=== PATIENT | female | born 1965 | race Native Hawaiian/Other Pacific Islander ===

== ENCOUNTER 2016-11-04 07:00 | Inpatient (IN) | payer MEDICAID ==
[2016-10-29 09:45] VITALS: BMI 25.7
[~2016-11-04 07:00] MED LIST: Lactated Ringer's 1,000 ML IV ONE
[2016-11-04] MEDS ORDERED: Propofol 10 mg/ml Inj (20 ML) ONE (07:19)
[2016-11-04] MEDS ORDERED: Midazolam 2 MG/2 ML VIAL ONE (07:20)
[2016-11-04] MEDS ORDERED: ePHEDrine 50 mg/ml Inj ONE (07:20)
[2016-11-04] MEDS ORDERED: Succinylcholine 200 mg/10 ml Inj IV ONE (07:21)
[2016-11-04] MEDS ORDERED: Rocuronium 10 mg/ml (5 ml) ONE (07:21)
[2016-11-04] MEDS ORDERED: Lidocaine 4% (Laryng-O-Jet) Kit MM ONE (07:21)
[2016-11-04] MEDS ORDERED: Sevoflurane - Inhalation Anesthetic Liq (250 ml) ONE (07:25)
[2016-11-04] MEDS ORDERED: Bupivacaine 0.25%-Epinephrine 1:200,000 (30 ml) Inj ONE (07:31)
[2016-11-04] MEDS ORDERED: Lactated Ringer's 1,000 ML IV ONE (09:45)
[2016-11-04] MEDS ORDERED: Dexamethasone 4 mg/1 ml ONE (10:05)
[2016-11-04] MEDS ORDERED: DiphenhydrAMINE 50 mg/ml Inj ONE (10:05)
[2016-11-04] MEDS ORDERED: Desflurane Inhalation Anesthetic Liq (240 ml) ONE (11:00)
[2016-11-04] MEDS ORDERED: HEMOSTATIC MATRIX 10 ML DIS.NEEDLE TOP ONE (11:00)
[2016-11-04] MEDS ORDERED: Neostigmine Methylsulfate 3mg/3ml Syringe IV ONE (11:04)
--- NOTE | 2016-11-04 11:17 | PCM.SURG1 ---
Surgeon's Initial Post Op Note - Surgeon's Notes Surgeon: silva willis md Rose Grower: madhuri CROUCH, Tra CROUCH Type of Anesthesia: General Endo, Local Pre-Operative Diagnosis: Proplapse uterus, chronic pelvic pain, fibroid uterus Operative Findings: bulky prolapsed uterus, extensive intraabdominal adhessions , pyosalpinx on left side, normal bladder anatomy ureters efluxing urine freely Post-Operative Diagnosis: Proplapse uterus, chronic pelvic pain, fibroid uterus , pyosalpinx, pelvic adhesinve disease Operation Performed: Total robotic hysterectomy bilateral salpingectomy. Colpopexy / Uterosacroligament suspenssion. Enterolysis. Cystoscopy Specimen/Specimens Removed: uterus, cervix and tubes bilateraly Estimated Blood Loss: EBL {In ML}: 10 Blood Products Given: N/A Drains Used: No Drains Post-Op Condition: Good Date of Surgery/Procedure: 11/04/16 Time of Surgery/Procedure: 11:19
[2016-11-04] MEDS ORDERED: Oxycodone/Acetaminophen 5/325 mg Tab PO PRN (11:21)
--- NOTE | 2016-11-04 11:27 | PCM.OP ---
Operative Report - Operative Report Date of Surgery/Procedure: 11/04/16 Time of Surgery/Procedure: 11:25 Surgeon: Ramon Wood md [employer]ustainable Development Policy Analyst: Tra CROUCH, Maral CROUCH Anesthesia/Sedation: General with ET tube Pre-Operative Diagnosis: Fibroid ureters. Prolapsed uterus. Chronic pelvic pain. Urinary urgency and frequency Post-Operative Diagnosis: Fibroid ureters. Prolapsed uterus. Chronic pelvic pain. Pelvic adhesive disease. Urinary urgency and frequency. Pyosalpinx Indication for Surgery: 51-year-old female with worsening chronic pelvic pain pprolapsed uterus, fibroid uterus and urinary urgency and frequency. the patient has failed conservative management for many years Operative Findings: prolpase uterus, severe pelvic adhesions likely from pelvic inflammatory disease in the past, uuterine fibroids. pyosalpinx within the left fallopian tube, right fallopian tube severely adherent to omentum and bowel loops. Normal bladder anatomy, ureters efluxing urine freely as per diagnostic cystoscopy at the end of the procedure. Procedure/Operation Description: Operation Performed: 1. Total robotic hysterectomy bilateral salpingectomy. 2. Colpopexy / Uterosacroligament suspenssion. 3. Enterolysis. 4. Cystoscopy. Detailed Operative Report. This is a 51 years old female with symptomatic uterine prolapse, associated fibroid uterus, chronic pelvic pain, and urinary incontinence. The patient completed an extensive preoperative workup, which included an ultrasound , as well as a pap smear and an endometrial biopsy, chemistry and hematology studies. The patient reported these symptoms and problems as debilitating, and adversely affecting her quality of life. Following a period of failed conservative management, and patient decision was made to proceed with a more invasive approach to address the above noted problems. A decision was finally made to proceed with a total robotic assisted hysterectomy, bilateral salpingectomy, and vaginal vault suspension. A detailed description of this robotic procedure was given to the patient, all risks and benefits of the surgical modality was reviewed, printed material was also given to the patient regarding robotic surgery. The patient fully understood all the risks and benefits and elected to proceed with this proposed procedure. Initial recommendations were made to proceed with bilateral salpingo-oophorectomy, however the patient elected to proceed with salpingectomy and maintained her ovaries despite recommendations to remove both ovaries at her age. After proper consent was obtained from the patient was taken to the operating room, proper patient identification was completed. She was placed in dorsal lithotomy position; general anesthesia was induced without difficulty. Her legs were placed in adjustable Dimitry stirrups. Careful attention was placed not to over-flex or over-rotate the lower extremities at the hip or the knee joints. She was prepped and draped appropriately for robotic assisted hysterectomy. De Jesus catheter was inserted under sterile conditions. A weighted speculum was placed in the vagina, anterior lip of cervix was grasped with a tenaculum, and a V-care uterine manipulator was inserted through the cervix and secured. The weighted speculum and tenaculum were removed from the patient's vagina and attention was turned to the patient's abdomen. Local anesthetic solutions of 0.25% Marcaine with epinephrine were utilized to infiltrate the skin prior to all abdominal skin incisions. A total of 15 mL of 0.25% Marcaine was utilized throughout the procedure. While tenting the abdominal wall, a Veres needle was inserted through the umbilicus and a pneumoperitoneum was obtained. Approximately 1 cm above the umbilicus in the midline, a 1 cm incision was made with a scalpel and a trocar and sleeve were introduced. A robotic camera was inserted and an initial survey of the patient' s abdomen revealed an enlarged uterus, boggy in appearance. Both ovaries appeared normal with diseased and distorted appearing fallopian tubes. The left fallopian tube appeared hydrosalpinx and the right tube appeared severely distorted and adherent. The patient was placed in Trendelenburg position ready for a da Jaspal robotic system to be docked. 3 robotic ports were utilized for this procedure. The first robotic port was placed on the patient's right side approximately 8 cm left lateral to the camera port, the second robotic port was placed 8 cm right lateral to the camera port and the third robotic port was placed approx. 8 cm lateral the second port. All ports were approx. aligned along the same horizontal line on the abdomen in an arch like fashion. An operating room assistant port was placed 8 cm left lateral to the first robotic port. For the operating room assistant and camera ports we utilized the Jipio trocar system. All trocars were inserted under direct visualization. The placement of the trocars was all accomplished under careful and meticulous placement under direct visualization. Following the placement of all trocars, the da Jaspal robotic system was docked in a parallel method without difficulty. The following instruments were utilized for this procedure: the bipolar cautery device, a monopolar gina and finally a ProGrasp. Meticulous and careful lysis of adhesions as well as enterolysis was accomplished utilizing the monopolar gina and bipolar device. Prior to the start of the hysterectomy, both ureters and their courses were visualized, peristalsis bilaterally. On the patient's right side, the utero-ovarian and the round ligaments were identified cauterized and transected, the broad ligament was divided all the way down to the utero cervical junction bladder flap was then created by transecting the visceroperitoneum over the bladder reflection. In a similar fashion, the left round ligament, utero-ovarian ligament and broad ligament were cauterized sealed and transected, taken down to the level of the cervical uterine junction. Uterine vessels on both sides were sealed and transected. The Uterosacral ligaments were sealed and transected. The monopolar gina and PK were utilized to complete the colpotomy incision around the care vaginal ring. Excellent hemostasis was noted. The uterus, cervix and fallopian tubes were delivered transvaginal through the colpotomy incision and sent to pathology for permanent analysis. The colpotomy incision was closed with 2-0 v LOC in a continuous fashion with excellent hemostasis. The vaginal vault suspension was achieved by suspending the vaginal cuff to the base of the uterosacral ligaments bilaterally. For uterosacral ligament suspension portion of the procedure, the ureters were once again identified to avoid possible compromise or kinking while suspending the vaginal vault. A 2-0 permanent suture material ( [place]-Vick) was utilized to suspend the uterosacral ligaments from the base to the vaginal vault cuff incision including both anterior and posterior aspect of the colpotomy incision. Utilizing a 3-0 Monocryl suture, the peritoneum over the colpotomy incision and uterosacral ligaments was re-approximated in a continuous fashion. The abdomen was throughout irrigated and cleared of all clots and debris. FloSeal as well as Interceed was applied to the incision sites. Excellent hemostasis was again noted. All robotic and laparoscopic instruments removed under direct visualization. The robotic arms were undocked , and a da Jaspal robotic system was wheeled away from the patient's bedside. Both operating room assistant and camera ports were closed at the fascial layer utilizing a 2- 0 Vicryl suture material in interrupted fashion. Pneumoperitoneum was reduced and all skin incisions were closed utilizing 4-0 Monocryl in a subcutaneous fashion. Dermabond was applied to all incisions. Due to the complexity of this hysterectomy and colpopexy, a diagnostic cystoscopy was completed. The De Jesus catheter was removed; the bladder was distended with approximately 350 cc of normal saline. A 30 cystoscope was introduced and a survey of the bladder anatomy was completed. The base, and the dome of the bladder appeared normal, both ureteral orifices appeared normal and were efluxing urine freely. The urethra appeared normal. A De Jesus catheter was reinserted. Vaginal packing was inserted to be removed the next morning. Patient emerged from general anesthesia without difficulty, and was taken to recovery room in stable condition. Prior to incision the patient received antibiotics, prior to closure sponge lap and needle counts were correct x2. Estimated Blood Loss: 10 Blood Replaced: none Sponge/Instrument Count: sponge lap and needle counts were correct x2 Drains: none Complications: none Specimen: uterus cervix fallopian tubes Discharge & Condition: patient was discharged home in stable condition postoperative #1
[2016-11-04] MEDS ORDERED: HYDROmorphone 0.5 mg/0.5 ml ISec IVP PRN (11:28)
[2016-11-04] MEDS ORDERED: Sodium Chloride 0.9% 1,000 ML IV SCH (11:30)
[2016-11-04] MEDS: ceFAZolin 2 GM in Sodium Chloride 0.9% 100 ML IVPB SCH (16:51)
[2016-11-04] MEDS: Lactated Ringer's 1,000 ML IV SCH (20:42)
[2016-11-05] MEDS: ceFAZolin 2 GM in Sodium Chloride 0.9% 100 ML IVPB SCH ×2 (00:43→09:32)
[2016-11-05 00:56] VITALS: RESP 18
[2016-11-05] MEDS: Lactated Ringer's 1,000 ML IV SCH (05:02)
[2016-11-05 06:52] LABS: BASO % 0.1 % (0.0-2.0); EOS % 0.1 % (0.0-4.0); HEMATOCRIT 31.8 % (34.0-47.0); LYMPH # 1.3 K/uL (1.0-4.3); LYMPH % 18.1 % (20.0-40.0); MEAN CELL VOLUME 83.8 fl (81.0-99.0); MEAN CORPUSCULAR HEMOGLOBIN 26.5 pg (27.0-31.0); MEAN CORPUSCULAR HGB CONC 31.7 g/dL (33.0-37.0); MONO # 0.6 K/uL (0.0-0.8); MONO % 7.7 % (0.0-10.0); NEUT # 5.5 K/uL (1.8-7.0); RED CELL DISTRIBUTION WIDTH 15.6 % (11.5-14.5); WHITE BLOOD COUNT 7.4 K/uL (4.8-10.8)
[2016-11-05 06:56] LABS: BLOOD UREA NITROGEN 12 mg/dl (7-17); CALCIUM 8.5 mg/dL (8.4-10.2); CARBON DIOXIDE 23 mmol/L (22-30); CHLORIDE 108 mmol/L (98-107); GFR AFRICAN-AMERICAN > 60; GLUCOSE,RANDOM 113 mg/dL (65-105); POTASSIUM 3.6 MMOL/L (3.6-5.0); SODIUM 139 mmol/l (132-148)
--- NOTE | 2016-11-05 12:38 | CP.PCM.PN ---
Subjective - Date & Time of Evaluation Date of Evaluation: 11/05/16 Time of Evaluation: 12:00 - Subjective Subjective: pt c/o incisional pain 4/10 alleviated with oral pain meds,noel diet without n/v, OOB/ amb with minimal asst,voiding + flatus,no events noted last pm Objective - Vital Signs/Intake and Output Vital Signs (last 24 hours): Temp Pulse Resp BP Pulse Ox 99.4 F 57 L 18 112/63 98 11/05/16 05:00 11/05/16 05:00 11/05/16 05:00 11/05/16 05:00 11/05/16 05:00 Intake and Output: 11/05/16 11/05/16 06:59 18:59 Intake Total 1900 Output Total 1300 Balance 600 - Medications Medications: Current Medications Hydromorphone HCl (Dilaudid) 2 mg IVP Q3H PRN PRN Reason: Pain, severe (8-10) Cefazolin Sodium 2 gm/ Sodium (Chloride) 100 mls @ 100 mls/hr IVPB Q8 [facility] Last Admin: 11/05/16 09:32 Dose: 100 mls/hr Sodium Chloride (Sodium Chloride 0.9%) 1,000 mls @ 100 mls/hr IV .Q10H [facility] Last Admin: 11/04/16 13:28 Dose: 0 mls Lactated Ringer's (Lactated Ringer's) 1,000 mls @ 125 mls/hr IV .Q8H [facility] Last Admin: 11/05/16 05:02 Dose: 125 mls/hr Ketorolac Tromethamine (Toradol) 30 mg IVP Q6H [facility] Last Admin: 11/05/16 11:06 Dose: 30 mg Ondansetron HCl (Zofran Inj) 4 mg IVP Q6 PRN PRN Reason: Nausea/Vomiting Oxycodone/Acetaminophen (Percocet 5/325 Mg Tab) 2 tab PO Q4H PRN PRN Reason: Pain, moderate (4-7) Stop: 11/07/16 11:22 - Labs Labs: 11/05/16 06:30 11/05/16 06:30 - Constitutional Appears: Well, Non-toxic, No Acute Distress - Head Exam Head Exam: ATRAUMATIC, NORMAL INSPECTION, NORMOCEPHALIC - Eye Exam Eye Exam: EOMI, PERRL - ENT Exam ENT Exam: Mucous Membranes Moist - Neck Exam Neck Exam: Normal Inspection - Respiratory Exam Respiratory Exam: Clear to Ausculation Bilateral - Cardiovascular Exam Cardiovascular Exam: REGULAR RHYTHM - GI/Abdominal Exam GI & Abdominal Exam: Soft, Normal Bowel Sounds Additional comments: incisions C/D/I,tender,no s/o peritonitis - Rectal Exam Rectal Exam: Deferred - Extremities Exam Additional comments: calves soft/NT +2 pulses - Neurological Exam Neurological Exam: Alert, Oriented x3 - Psychiatric Exam Psychiatric exam: Normal Affect, Normal Mood - Skin Skin Exam: Dry, Intact Assessment and Plan - Assessment and Plan (Free Text) Assessment: 51 yo female POD# 1 Robotic Assisted Hysterectomy/LADI/Uterosacral Ligament Suspension/Cystoscopy/Hemodynamically stable Plan: pt seen by ,to be d/c home today with family and f/u in office in 2 weeks,pt given pain med scripts and wound care instructions d/w pt and as well.
--- NOTE | 2016-11-05 12:47 | CP.PCM.DIS ---
Provider - Provider Date of Admission: 11/04/16 11:21 Attending physician: Ramon Wood MD Primary care physician: NO FAMILY PROVIDER Time Spent in preparation of Discharge (in minutes): 30 Diagnosis - Discharge Diagnosis (1) Fibroid uterus Status: Chronic (2) Chronic female pelvic pain Status: Chronic (3) Urinary urgency Status: Chronic Hospital Course - Lab Results Lab Results: Most Recent Lab Values WBC 7.4 K/uL (4.8-10.8) D 11/05/16 06:30 RBC 3.79 Mil/uL (3.80-5.20) L 11/05/16 06:30 Hgb 10.1 g/dL (12.0-16.0) L 11/05/16 06:30 Hct 31.8 % (34.0-47.0) L 11/05/16 06:30 MCV 83.8 fl (81.0-99.0) 11/05/16 06:30 MCH 26.5 pg (27.0-31.0) L 11/05/16 06:30 MCHC 31.7 g/dL (33.0-37.0) L 11/05/16 06:30 RDW 15.6 % (11.5-14.5) H 11/05/16 06:30 Plt Count 171 K/uL (130-400) 11/05/16 06:30 MPV 9.0 fl (7.2-11.7) 11/05/16 06:30 Neut % (Auto) 74.0 % (50.0-75.0) 11/05/16 06:30 Lymph % (Auto) 18.1 % (20.0-40.0) L 11/05/16 06:30 Garvin % (Auto) 7.7 % (0.0-10.0) 11/05/16 06:30 Eos % (Auto) 0.1 % (0.0-4.0) 11/05/16 06:30 Baso % (Auto) 0.1 % (0.0-2.0) 11/05/16 06:30 Neut # 5.5 K/uL (1.8-7.0) 11/05/16 06:30 Lymph # 1.3 K/uL (1.0-4.3) 11/05/16 06:30 Garvin # 0.6 K/uL (0.0-0.8) 11/05/16 06:30 Eos # 0.0 K/uL (0.0-0.7) 11/05/16 06:30 Baso # 0.0 K/uL (0.0-0.2) 11/05/16 06:30 Sodium 139 mmol/l (132-148) 11/05/16 06:30 Potassium 3.6 MMOL/L (3.6-5.0) 11/05/16 06:30 Chloride 108 mmol/L (98-107) H 11/05/16 06:30 Carbon Dioxide 23 mmol/L (22-30) 11/05/16 06:30 Anion Gap 12 (10-20) 11/05/16 06:30 BUN 12 mg/dl (7-17) 11/05/16 06:30 Creatinine 0.6 mg/dL (0.7-1.2) L 11/05/16 06:30 Est GFR ( Amer) > 60 11/05/16 06:30 Est GFR (Non-Af Amer) > 60 11/05/16 06:30 Random Glucose 113 mg/dL (65-105) H 11/05/16 06:30 Calcium 8.5 mg/dL (8.4-10.2) 11/05/16 06:30 Discharge Exam - Head Exam Head Exam: ATRAUMATIC, NORMAL INSPECTION, NORMOCEPHALIC Discharge Plan - Follow Up Plan Condition: GOOD Disposition: HOME/ ROUTINE Patient education suggested?: Yes Additional Instructions: keep incisions clean and dry,no lifting,modified seating daily to avoid pressure on vaginal cuff,resume previous diet,percocet and motrin as needed for pain daily,may shower,follow up with Dr. Wood in 2 weeks call for appt time, call physician if you develope high fever's,wound drainage,wound opening,pain not controlled with pain meds or significant vaginal bleeding. Referrals: FAMILY PROVIDER,NO [Primary Care Provider] -
[2016-11-05 13:52] VITALS: BP 109/71; PULSE 66; TEMP 99.1; O2SAT 100
== END 2016-11-05 13:15 | disposition home or self-care (01) | DRG 359 ==
LOC: H.OPSURG 07:00 → H.PEDS 11:21
PROVIDERS: ADMIT Obstetrics & Gynecology; ATTEND Obstetrics & Gynecology
PROC: 0DNW4ZZ Release Peritoneum, Percutaneous Endoscopic Approach (ICD-10-PCS; 2016-11-04)
PROC: 0USG4ZZ Reposition Vagina, Percutaneous Endoscopic Approach (ICD-10-PCS; 2016-11-04)
PROC: 0UTC4ZZ Resection of Cervix, Percutaneous Endoscopic Approach (ICD-10-PCS; 2016-11-04)
PROC: 8E0W4CZ Robotic Assisted Procedure of Trunk Region, Percutaneous Endoscopic Approach (ICD-10-PCS; 2016-11-04)
PROC: 0UT94ZZ Resection of Uterus, Percutaneous Endoscopic Approach (ICD-10-PCS; principal; 2016-11-04 07:45)
PROC: 0UT74ZZ Resection of Bilateral Fallopian Tubes, Percutaneous Endoscopic Approach (ICD-10-PCS; 2016-11-04 07:45)
DX: D25.9 Leiomyoma of uterus, unspecified (principal); G89.29 Other chronic pain; N70.11 Chronic salpingitis; N81.4 Uterovaginal prolapse, unspecified; K66.0 Peritoneal adhesions (postprocedural) (postinfection); N80.0 Endometriosis of uterus; N39.41 Urge incontinence; N80.2 Endometriosis of fallopian tube